=== PATIENT | female | born 1965 | race Caucasian/White ===

== ENCOUNTER 2020-04-14 19:53 | Emergency (ER) | payer OTHER ==
[~2020-04-14] VITALS: Ht 157.5 cm; Wt 54.4 kg
[2020-04-14 20:59] LABS: ABSOLUTE NEUTROPHILS 2.1 thou/uL (1.4-8.2); BASOPHILS 1.1 % (0.0-2.0); EOSINOPHILS 0.1 % (0.0-3.0); HEMATOCRIT 46.4 % (37.0-47.0); HEMOGLOBIN 16.1 gm/dL (12.0-15.0); LYMPHOCYTES 30.3 % (24.0-44.0); MCH 30.9 pg (26.0-34.0); MCHC 34.7 g/dL (28.0-37.0); MCV 89.1 fL (80.0-100.0); MONOCYTES 11.9 % (1.0-8.0); PLATELET COUNT 164 thou/uL (150-400); POLYS 56.6 % (36.0-66.0); RDW 13.7 % (10.5-14.5); WBC 3.8 thou/uL (4.0-11.0)
[2020-04-14 21:04] LABS: ANION GAP 10 mmol/L (7-16); BUN 11 mg/dL (7-18); CHLORIDE 98 mmol/L (98-107); CO2 25 mmol/L (21-32); CREATININE 0.7 mg/dL (0.6-1.0); GLUCOSE 133 mg/dL (74-106); POTASSIUM 3.4 mmol/L (3.5-5.1); SODIUM 133 mmol/L (136-145)
[2020-04-14 21:14] LABS: ALBUMIN 3.6 g/dL (3.4-5.0); LIPASE 132 U/L (73-393); SGOT 29 U/L (15-37); SGPT 30 U/L (30-65); TOTAL BILIRUBIN 0.3 mg/dL (0.2-1.0); TOTAL PROTEIN 7.6 g/dL (6.4-8.2); TROPONIN-I <0.06 ng/mL (<0.06)
[2020-04-14] MEDS ORDERED: PEPCID20 MG PO (22:09)
[2020-04-14] MEDS ORDERED: ZOFRAN ODT4 MG PO (22:10)
[2020-04-14 22:20] VITALS: BP 115/67
--- NOTE | 2020-04-15 07:54 | EKG ---
[facility] [place] [address] ELECTROCARDIOGRAM REPORT Name: NOVA HURT Room #: DEP [facility]..#: [id number] Admission: 04/14/20 Attend Phys: Discharge: 04/14/20 Date of : 69 Report #: [id number] THIS REPORT FOR: cc: JITENDRA - [place] family physician/PCP JITENDRA - [place] family physician/PCP Juancho Escobar MD [facility] THIS REPORT FOR: //name// [facility] ED Test Date: 2020-04-14 Test Time: 20:20:31 Pat Name: NOVA WILLIS Department: Room: Gender: F Catering Manager: [place] [id number] : 1965 Requested By: Tera Huang Order Number: [id number] MD: Juancho Escobar Measurements Intervals Elbert Rate: 62 P: 72 ND: 155 QRS: 49 QRSD: 85 T: 56 QT: 408 QTc: 415 Interpretive Statements Sinus rhythm Normal tracing No previous ECG available for comparison Electronically Signed On 04-15-2020 7:54:06 CDT by Juancho Escobar [email or web address] <ELECTRONICALLY SIGNED> By: Juancho Escobar MD, FAC 04/15/20 0754 19 19 Juancho Escobar MD, [facility] /EPI
== END 2020-04-14 22:21 | disposition home or self-care (01) ==
LOC: ER 19:53
PROVIDERS: Emergency Medicine
DX: R10.13 Epigastric pain (principal); R11.2 Nausea with vomiting, unspecified; R50.9 Fever, unspecified